=== PATIENT | male | born 1965 | race Caucasian/White ===

== ENCOUNTER 2021-12-13 17:44 | Inpatient (IN) | payer OTHER ==
[2021-12-13] MEDS ORDERED: IBUPROFEN 400 MG TABLET (FP) PO PRN (19:13)
[2021-12-13] MEDS ORDERED: BISMUTH SUBSALICYLATE 524 MG/30 ML PO PRN (19:13)
[2021-12-13] MEDS ORDERED: ACETAMINOPHEN 325 MG TABLET (FP) PO PRN ×2 (19:13)
[2021-12-13] MEDS ORDERED: ONDANSETRON *ODT* 4 MG TABLET SL PRN (19:13)
[2021-12-13] MEDS ORDERED: cloNIDine HCL 0.1 MG TABLET PO PRN (19:13)
[2021-12-13] MEDS ORDERED: methaDONE HCL 10 MG TABLET (FOR DETOX USE ONLY) PO ONE (19:13)
[2021-12-13] MEDS ORDERED: MAGNESIUM HYDROX 2400MG/30ML ORAL SUSPENSION 30 ML CUP PO PRN (19:13)
[2021-12-13] MEDS ORDERED: NICOTINE 10 MG CARTRIDGE (INHALER) IH PRN (19:13)
[2021-12-13] MEDS ORDERED: MAG HYDROX/AL HYDROX/SIMETH 30 ML UNIT-DOSE CUP PO PRN (19:13)
[2021-12-13] MEDS ORDERED: MENTHOL/PHENOL 1 EACH UD MM PRN (19:13)
[2021-12-13] MEDS ORDERED: MAGNESIUM CITRATE 300 ML BOTTLE PO PRN (19:13)
[2021-12-13] MEDS ORDERED: AMMONIUM LACTATE 12% LOTION 225 GM BOTTLE TP PRN (19:25)
[2021-12-13 20:00] VITALS: BMI 19.8
[2021-12-14] MEDS ORDERED: methaDONE HCL 10 MG TABLET (FOR DETOX USE ONLY) ONE ×2 (02:53→09:05)
[2021-12-14] MEDS ORDERED: hydrOXYzine PAMOATE 25 MG CAPSULE (FP) PO ONE (02:54)
[2021-12-14] MEDS: MELATONIN 5 MG TABLETS PO SCH ×2 (03:03→22:24)
[2021-12-14] MEDS: hydrOXYzine PAMOATE 25 MG CAPSULE (FP) PO SCH ×6 (03:04→22:24)
[2021-12-14] MEDS: THIAMINE HCL 100 MG TABLET (FP) PO SCH ×2 (03:04→22:24)
[2021-12-14] MEDS: BACITRACIN 0.9 GM PACKET TP SCH ×3 (03:40→22:24)
[2021-12-14 09:58] LABS: HEMATOCRIT 36.1 % (35.4-49); HEMOGLOBIN 11.9 GM/dL (11.7-16.9); MEAN CELL VOLUME 90.9 fl (80-96); PLATELET COUNT 366 10^3/uL (134-434); RBC 3.98 M/mm3 (4.00-5.60); RDW 13.7 % (11.9-15.9); WHITE BLOOD COUNT 10.4 K/mm3 (4.0-10.0)
[2021-12-14 10:01] LABS: CALCIUM 8.7 mg/dL (8.5-10.1)
[2021-12-14 10:02] LABS: ALBUMIN 2.9 g/dl (3.4-5.0); BLOOD UREA NITROGEN 16.2 mg/dL (7-18)
[2021-12-14 10:05] LABS: CREATININE 0.8 mg/dL (0.55-1.3)
[2021-12-14 10:06] LABS: TOT PROT 7.4 g/dl (6.4-8.2)
[2021-12-14 10:08] LABS: BILIRUBIN,TOTAL 0.3 mg/dL (0.2-1)
[2021-12-14] MEDS: PRENATAL VITAMINS W/ FOLIC ACID TABLET (FP) PO SCH (11:03)
[2021-12-14] MEDS: SULFAMETHOXAZOLE/TRIMETHOPRIM 800MG/160MG D.S. TABLET PO SCH (11:04)
[2021-12-14] MEDS: NICOTINE 21 MG/24 HOURS TOPICAL PATCH TD SCH (11:05)
[2021-12-15] MEDS: hydrOXYzine PAMOATE 25 MG CAPSULE (FP) PO SCH ×5 (06:07→22:40)
[2021-12-15] MEDS: BACITRACIN 0.9 GM PACKET TP SCH ×2 (09:46→22:40)
[2021-12-15] MEDS: SULFAMETHOXAZOLE/TRIMETHOPRIM 800MG/160MG D.S. TABLET PO SCH (09:46)
[2021-12-15] MEDS: NICOTINE 21 MG/24 HOURS TOPICAL PATCH TD SCH (09:46)
[2021-12-15] MEDS: PRENATAL VITAMINS W/ FOLIC ACID TABLET (FP) PO SCH (09:46)
[2021-12-15] MEDS ORDERED: methaDONE HCL 10 MG TABLET (FOR DETOX USE ONLY) PO ONE (10:00)
[2021-12-15] MEDS: MELATONIN 5 MG TABLETS PO SCH (22:40)
[2021-12-15] MEDS: THIAMINE HCL 100 MG TABLET (FP) PO SCH (22:40)
[2021-12-16] MEDS: METHOCARBAMOL 500 MG TABLET PO PRN ×2 (05:53→19:24)
[2021-12-16] MEDS: hydrOXYzine PAMOATE 25 MG CAPSULE (FP) PO SCH ×6 (05:53→22:11)
[2021-12-16] MEDS ORDERED: methaDONE HCL 10 MG TABLET (FOR DETOX USE ONLY) ONE (09:24)
[2021-12-16] MEDS: PRENATAL VITAMINS W/ FOLIC ACID TABLET (FP) PO SCH (10:03)
[2021-12-16] MEDS: SULFAMETHOXAZOLE/TRIMETHOPRIM 800MG/160MG D.S. TABLET PO SCH (10:04)
[2021-12-16] MEDS: NICOTINE 21 MG/24 HOURS TOPICAL PATCH TD SCH (10:05)
[2021-12-16] MEDS: BACITRACIN 0.9 GM PACKET TP SCH ×2 (10:06→22:11)
[2021-12-16] MEDS ORDERED: ALBUTEROL SO4 HFA INHALER IH PRN (19:27)
[2021-12-16] MEDS: MELATONIN 5 MG TABLETS PO SCH (22:11)
[2021-12-16] MEDS: THIAMINE HCL 100 MG TABLET (FP) PO SCH (22:12)
[2021-12-17] MEDS: hydrOXYzine PAMOATE 25 MG CAPSULE (FP) PO SCH (06:46)
[2021-12-17 08:49] VITALS: BP 133/69; PULSE 76; TEMP 96.8
[2021-12-17] MEDS ORDERED: methaDONE HCL 10 MG TABLET (FOR DETOX USE ONLY) PO ONE (10:00)
== END 2021-12-17 09:30 | disposition home or self-care (01) | DRG 773 ==
LOC: YASAS 17:44 → Y3N 12-14 01:05
PROVIDERS: ADMIT Allergy & Immunology; ATTEND Allergy & Immunology
PROC: HZ2ZZZZ Detoxification Services for Substance Abuse Treatment (ICD-10-PCS; principal; 2021-12-14)
DX: F11.23 Opioid dependence with withdrawal (principal); F14.20 Cocaine dependence, uncomplicated; F17.210 Nicotine dependence, cigarettes, uncomplicated; F31.9 Bipolar disorder, unspecified; J44.9 Chronic obstructive pulmonary disease, unspecified; B18.2 Chronic viral hepatitis C
CPT/HCPCS: 36415; 80053; 85027; 86780; C9803; Q0162; U0003; U0005